=== PATIENT | female | born 1960 | race Caucasian/White ===

== ENCOUNTER 2019-08-22 10:05 | Outpatient (CLI) | payer MEDICAID, SELFPAY ==
--- NOTE | 2019-08-22 10:18 | DI.RAD_ITS ---
EXAM: XR WRIST RT COMPLETE INDICATION: pain. COMPARISON: No exams were available for comparison TECHNIQUE: 2D digital imaging was performed. FINDINGS: At the 1st carpometacarpal joint, there is marked joint space narrowing, subchondral sclerosis and pe riarticular hypertrophy. The joint spaces in the wrist are otherwise well maintained. No acute frac ture or dislocation is seen. The soft tissues are unremarkable. IMPRESSION: Advanced degenerative changes of the 1st carpometacarpal joint.
--- NOTE | 2019-08-22 10:20 | DI.RAD_ITS ---
EXAM: XR WRIST LT COMPLETE INDICATION: pain. COMPARISON: XR WRIST RT COMPLETE from 08/22/2019 TECHNIQUE: 2D digital imaging was performed. FINDINGS: At the 1st carpometacarpal joint, there is joint space narrowing and periarticular spurring. There i s subluxation laterally of the 1st metacarpal relative to the trapezium. The other articular surface s of the wrist are unremarkable. The bones are normally mineralized. There is a tiny ossified densi ty at the tip of the ulnar styloid process. This likely reflects an old fracture fragment. Soft tis sues are unremarkable. IMPRESSION: Advanced degenerative changes of the 1st carpometacarpal joint.
--- NOTE | 2019-08-22 10:23 | DI.RAD_ITS ---
EXAM: XR KNEE RT 2V AP,LAT INDICATION: pain. COMPARISON: No exams were available for comparison TECHNIQUE: 2D digital imaging was performed. FINDINGS: In the medial femoral tibial joint, there is marked joint space narrowing flattening of the articular surfaces. Periarticular spurring is present. At the patellofemoral joint, there is periarticular s purring and joint space narrowing. In the lateral femoral tibial joint, there is periarticular spurr ing present. No acute fracture or dislocation is present. There is a question of densities in the i nfrapatellar region which may represent loose bodies. Soft tissues are unremarkable. IMPRESSION: Osteoarthritis of the right knee.
== END 2019-08-22 10:25 ==
PROVIDERS: PCP Nurse Practitioner Adult Health; Visit Provider Orthopaedic Surgery
DX: M25.561 Pain in right knee (principal); M17.11 Unilateral primary osteoarthritis, right knee; M25.531 Pain in right wrist; M18.51 Other unilateral secondary osteoarthritis of first carpometacarpal joint, right hand; M25.532 Pain in left wrist; M18.52 Other unilateral secondary osteoarthritis of first carpometacarpal joint, left hand
CPT/HCPCS: 73110; 73560

== ENCOUNTER 2019-11-28 09:01 | Outpatient (CLI) | payer MEDICAID, SELFPAY | END 2019-11-28 09:21 | PROVIDERS: PCP Nurse Practitioner Adult Health; Visit Provider Orthopaedic Surgery | DX: M19.042 Primary osteoarthritis, left hand (principal); Z01.818 Encounter for other preprocedural examination ==

== ENCOUNTER 2019-12-04 07:18 | Day surgery (SDC) | payer MEDICAID, SELFPAY ==
[2019-11-28 08:53] VITALS: BP 117/81; PULSE 73; RESP 16; TEMP 36.3; O2SAT 96
[2019-12-04] VITALS (7 sets, daily range): BP systolic 104–131; BP diastolic 59–84; PULSE 59–80; RESP 12–20; TEMP 36.5–36.6; O2SAT 98–100
[2019-12-04] MEDS: Lactated Ringers 1,000 ML 80 ML IV (07:12)
[2019-12-04] MEDS: ceFAZolin 2 GM/50 ML BAG IVPB (07:56)
--- NOTE | 2019-12-04 08:59 | W.PM.DSUDISC ---
Discharge Plan Disposition Patient Disposition: HOME Condition: Good Discharge Details Reason For Visit: L Trapezial resection arthroplasty Attending Provider: Julian Ambriz Primary Care Provider: Елена Robb Home Meds and New Rx's Prescriptions: New ibuprofen 600 mg tablet 600 mg PO TID Qty: 30 RF: 0 hydrocodone-acetaminophen 5-325 mg tablet 1 tab PO Q6H PRN (Reason: pain) Qty: 10 RF: 0 Continued chlorthalidone 25 mg tablet 25 mg PO DAILY Qty: 90 RF: 3 levothyroxine 100 mcg capsule 100 mcg PO DAILY Qty: 90 RF: 3 lisinopril 20 mg tablet 20 mg PO DAILY Qty: 90 RF: 3 venlafaxine 150 mg capsule,extended release 24hr 150 mg PO DAILY Qty: 90 RF: 3 venlafaxine 75 mg capsule,extended release 24hr 75 mg PO DAILY Qty: 90 RF: 3 melatonin 5 mg capsule 5 mg PO HS PRNRF: 0 Discharge Instructions Additional Instructions: Elevate L hand above heart level as much as possible over next 48 hours. Wiggle fingers L hand 10 times/hour when awake. Keep dressings and splint dry and in place until return. Return to 's office in 2 weeks. Take ibuprofen as prescribed for 10 days. Take hydrocodone for breakthru pain, if needed. Equipment/Supplies: Splint Activity:: Activity as Tolerated Remove Dressings/Wound Care:: Do Not Remove Shower/Bathe:: Cover Diet:: As Tolerated Discharge Orders Discharge Orders: Discharge Order (Routine); Ordered 12/04/19 Ordered By: Julian Ambriz DS: Diagnosis Discharge Diagnosis (1) Arthritis of carpometacarpal (CMC) joint of left thumb: Status: Chronic
--- NOTE | 2019-12-05 11:19 | ROE_ITS ---
DATE OF PROCEDURE: December 04, 2019 PREOPERATIVE DIAGNOSIS: Osteoarthritis CMC joint, left thumb. POSTOPERATIVE DIAGNOSIS: Same. PROCEDURE: Trapezial resectional arthroplasty on the left. Application of radial short-arm thumb sp ica splint. ANESTHESIA: General. SURGEON: Julian Ambriz M.D. EDUCATION ASSISTANT: Thanh Nova INDICATIONS: This is a 59-year-old white female with longstanding left thumb pain due to osteoarthri tis of the CMC joint of the left thumb. She had progressed to the point where splinting was no longe r alleviating her discomfort. Trapezial resection arthroplasty was recommended to alleviate her pain on a permanent basis. The risks and complications of the procedure were explained to the patient in detail preoperatively. PROCEDURE: The patient was taken to the operating room on 12/04/2019. She was placed supine on the o perating table and a general anesthetic was administered. A proximal tourniquet was applied to the l eft upper arm and then the left arm was exsanguinated by elevation for two minutes. The tourniquet w as inflated to 325 mmHg. The left hand, wrist and forearm were prepped and draped free in the usual sterile fashion. A longitudinal incision was made, centered over the extensor tendons of the first dorsal extensor com partment over the CMC joint of the left thumb. The incision was about three inches in length. The i ncision was carried down to the tendons of the extensor pollicis brevis and abductor pollicis longus tendons. I made an incision in the joint capsule between the extensor tendons entering the CMC joint . The trapezium was subperiosteally freed and dissected and exposed. An oscillating saw was used to make a transverse cut through the trapezium parallel to the base of the trapezium. A millimeter or so thick wafer of trapezium was left intact. I then placed vertical cuts to the distal trapezium and using a small osteotome I was able to separate the fragments and then a rongeur was used to remove t he trapezium in a piecemeal fashion. The wound margins were infiltrated with 0.5% Marcaine with an e pinephrine solution. The capsule of the CMC joint was approximated with a pursestring suture of #3-0 Vicryl to bring soft tissue interposed between the base of the thumb metacarpal and the remaining tr apezium. The thumb metacarpal was hyperextended and then the extensor pollicis brevis and abductor p ollicis longus tendons were tenodesed to the capsule with interrupted [id number] sutures of #2-0 Vicryl suture. This corrected the preoperative subluxation of the thumb. Checking, I could passive ly touch the tip of the thumb to the base of the little finger so the repair and tenodesis was not to o tight. The wound was irrigated with saline solution. The skin and subcu were approximated with a few interrupted #2-0 Vicryl sutures and then a running subcuticular suture of #4-0 Monocryl. This wa s supplemented by tissue glue and Steri-Strips. The wound was dressed with Xeroform gauze, sterile g auze 4x4's, ABD pad and wrapped with a Kerlix bandage. I then applied a fiberglass radial thumb spic a splint with a 3-inch JESI bandage. The tourniquet was released at this point; there was no breakthr ough bleeding to the dressings. The patient's general anesthesia was reversed without complications. She was discharged to the recovery room in good condition. The patient was later discharged home from the Day Surgery Unit when fully recovered from her general anesthesia. She was given instructions to try to elevate her left hand above heart level as much as possible for the next 48 hours. She should wiggle her fingers ten times an hour while awake to prev ent swelling. She is to keep the dressings and splint dry and intact [facility] She will take ibuprofen 600 mg p.o. t.i.d. for ten days to reduce inflammation and swelling. She was given a prescription of Hydrocodone with APAP 5/325, one tablet every six hours, i f needed, for breakthrough pain.
== END 2019-12-04 11:03 | disposition home or self-care (01) ==
PROVIDERS: PCP Nurse Practitioner Adult Health; Visit Provider Orthopaedic Surgery
PROC: (CPT 25447; principal; 2019-12-04 07:30)
DX: M18.12 Unilateral primary osteoarthritis of first carpometacarpal joint, left hand (principal); I10 Essential (primary) hypertension
CPT/HCPCS: 25447; J0690; J1100; J1885; J2405; J3010

== ENCOUNTER 2020-03-15 09:04 | Outpatient (CLI) | payer MEDICAID, SELFPAY ==
[2020-03-15 23:33] LABS: COVID-19 RT-PCR UVMMC Result Negative (Negative)
== END 2020-03-15 09:24 ==
PROVIDERS: PCP Nurse Practitioner Adult Health; Visit Provider Orthopaedic Surgery
DX: Z01.818 Encounter for other preprocedural examination (principal); Z11.59 Encounter for screening for other viral diseases
CPT/HCPCS: U0003

== ENCOUNTER 2020-03-18 09:22 | Day surgery (SDC) | payer MEDICAID, SELFPAY ==
[2020-03-18 09:19] VITALS: BP 113/82; PULSE 76; RESP 20; TEMP 36.6; O2SAT 98
[2020-03-18] MEDS: Lactated Ringers 1,000 ML 80 ML IV (09:55)
[2020-03-18] MEDS: ceFAZolin 2 GM/50 ML BAG IVPB (11:37)
--- NOTE | 2020-03-18 12:29 | W.PM.DSUDISC ---
Discharge Plan Disposition Patient Disposition: HOME Condition: Good Discharge Details Reason For Visit: R Trapezial Resection arthroplasty Attending Provider: Julian Ambriz Primary Care Provider: Елена Robb Home Meds and New Rx's Prescriptions: New hydrocodone-acetaminophen 5-325 mg tablet 1 tab PO Q6H PRN (Reason: pain) Qty: 10 RF: 0 Continued chlorthalidone 25 mg tablet 25 mg PO DAILY Qty: 90 RF: 3 levothyroxine 100 mcg capsule 100 mcg PO DAILY Qty: 90 RF: 3 lisinopril 20 mg tablet 20 mg PO DAILY Qty: 90 RF: 3 venlafaxine 150 mg capsule,extended release 24hr 150 mg PO DAILY Qty: 90 RF: 3 venlafaxine 75 mg capsule,extended release 24hr 75 mg PO DAILY Qty: 90 RF: 3 melatonin 5 mg capsule 5 mg PO HS PRNRF: 0 ibuprofen 600 mg tablet 600 mg PO TID Qty: 30 RF: 0 Discharge Instructions Additional Instructions: Elevate R hand above heart level as much as possible for next 48 hours. Wiggle fingers R hand 10 times/hour when awake to prevent swelling. Keep dressings and splint dry and intact until Return. Return to 's office in 2 weeks. Take ibuprofen for mild pain every 6 hours. Take hydrocodone for breakthru pain, if needed. Cover splint with plastic bag sealed with large rubber band below elbow to shower. Stand Alone Forms: DSU Post op Instructions, Fadi Sellers (DSU) Referrals: Julian Ambriz MD [ [facility] STAFF PHYSICIAN] - (f/u in 2 weeks) Equipment/Supplies: Splint Activity:: Activity as Tolerated Remove Dressings/Wound Care:: Do Not Remove Shower/Bathe:: Cover Diet:: As Tolerated Discharge Orders Discharge Orders: Discharge Order (Routine); Ordered 03/18/20 Ordered By: Julian Ambriz DS: Diagnosis Discharge Diagnosis (1) Arthritis of carpometacarpal (CMC) joint of right thumb: Status: Acute
[2020-03-18 13:15] VITALS: PULSE 61; RESP 18; TEMP 36.6; O2SAT 96
[2020-03-18 14:01] VITALS: BP 120/74; PULSE 63; RESP 18; TEMP 36.5; O2SAT 98
--- NOTE | 2020-03-20 15:17 | W.PM.OP ---
Date of service: 03/18/20 Time of Service: 13:04 Operative Note Operative Note DATE OF PROCEDURE: 03/18/20 PRE-OP DIAGNOSIS: Osteoarthritis CMC joint right thumb POST-OP DIAGNOSIS: same PROCEDURE: Trapezial resectional arthroplasty on the right SURGEON: uJlian Ambriz CAUL FAT PULLER: Morenita Arrington ANESTHESIA: regional ESTIMATED BLOOD LOSS: 0 PATHOLOGY: none sent TOURNIQUET TIME: 45 COMPLICATIONS: None Patient was transported to: PACU Patient's condition: stable Indications: Is a 59-year-old white female with over 1 year history of bilateral thumb pain. This interferes with her household activities including knitting. 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 She had a a successful trapezial resectional arthroplasty on the left in November. She is happy with the results and wishes to have the same procedure on the right thumb now. She has got no significant relief from splinting and anti-inflammatory medications. Trapezial resection arthroplasty on the right is recommended to alleviate her pain and restore better function to her right hand. Procedure Description: Patient was taken to the operating room on 03/18/2020. She was placed supine operative table and an IV regional anesthetic was administered to the right upper extremity. Once good anesthesia was obtained, the right hand wrist and forearm were prepped and draped free in usual sterile fashion. A longitudinal incision was made centered over the dorsum of the CMC joint of the thumb. Incision was carried down to the subcu. Dorsal sensory branches of the radial nerve were mobilized. Incision was made between the abductor pollicis longus tendon and extensor pollicis brevis tendon through the capsule of the CMC joint of the thumb. Subperiosteal dissection was used to expose the trapezium. The trapezium was then excised in a piecemeal fashion. I used a small oscillating saw to cut the trapezium into pieces and a small rongeur was then used to remove the piece of the trapezium. At this point the wound margins were infiltrated 0.5% Marcaine with epinephrine solution. The capsule of the CMC joint was repaired with interrupted [id number] sutures of number one 5 suture material. The thumb metacarpal was then placed in some extension and I performed a tenodesis of the EPL and extensor pollicis brevis tendons using interrupted 2-0 Vicryl sutures through the capsule of the CMC joint. I checked the tension so that she could touch the proximal flexion crease of her little finger with her thumb tip passively. Wounds irrigated with saline solution the skin and subcu were approximated with a running subcuticular suture of 4-0 Monocryl supplemented with tissue glue. Wounds dressed with sterile gauze 4 x 4's ABD pad wrapped with a individual bandage. I then fashioned a short arm radial thumb spica splint of fiberglass cast material and applied it to the right thumb with a 3 inch Eleno bandage. Patient tolerated the procedure well and experienced no complications. Patient's IV regional anesthesia was reversed without complications she was discharged to the recovery room in good condition. Patient was later discharged home from day surgery unit when fully recovered from her IV regional anesthesia. She is given instructions to elevate her right hand above heart level as much as possible for the next 48 hours. She is encouraged to wiggle her fingers 10 times an hour while awake to prevent swelling. She is to keep the splint and dressings dry and intact until she follows up with Dr. Ambriz in 2 weeks. She is to cover the splint and dressings with a plastic bag to shower. She is given a prescription for breakthrough pain of hydrocodone with APAP 01/20/2025 1tablet every 6 hours if needed. She will take Tylenol or ibuprofen for mild pain.
== END 2020-03-18 14:05 | disposition home or self-care (01) ==
PROVIDERS: PCP Nurse Practitioner Adult Health; Visit Provider Orthopaedic Surgery
PROC: (CPT 25447; principal; 2020-03-18 11:00)
DX: M18.11 Unilateral primary osteoarthritis of first carpometacarpal joint, right hand (principal); M79.644 Pain in right finger(s)
CPT/HCPCS: 25447; J0690; J1885; J2405; J3010

== ENCOUNTER 2020-04-10 01:45 | Outpatient (CLI) | payer MEDICAID, SELFPAY ==
--- NOTE | 2020-04-10 08:00 | DI.MAMMO_ITS ---
EXAM: MG MAMMO SCREENING CLINICAL HISTORY: screening,z12.39 TECHNIQUE: Mammograms were interpreted according to the usual protocol including computer analysis w [employer] CAD system, tomosynthesis and C-view imaging. COMPARISON: 2012 through 2019 from [facility] in [facility]. FINDINGS: The breasts are composed of mainly fatty density , Breast Density category A. No suspicious masses or suspicious microcalcifications are seen. No skin thickening or abnormal axillary lymph nodes are seen. There has been no significant change from prior exams. IMPRESSION: BI-RADS Category 1, Negative mammogram Yearly screening mammography is recommended. Breast Density Category A, fatty density. A negative radiographic report should not delay biopsy if a dominant or clinically suspicious mass is present. Up to ten percent of cancers are not identified on mammography. A negative report may reinforce clinical impression. Adenosis and dense breasts may obscure an underlying neoplasm. False positive reports average 6 to 10%. Patient will receive a letter notifying them of these results.
== END 2020-04-10 02:05 ==
PROVIDERS: PCP Nurse Practitioner Adult Health; Visit Provider Nurse Practitioner Adult Health
DX: Z12.31 Encounter for screening mammogram for malignant neoplasm of breast (principal); R92.2 Inconclusive mammogram
CPT/HCPCS: 77063; 77067

== ENCOUNTER 2020-08-07 03:01 | Outpatient (CLI) | payer MEDICAID, SELFPAY ==
[2020-08-07 17:52] LABS: ALT 29 U/L (14-59); AST 21 U/L (15-37); Alkaline Phosphatase 104 U/L (46-116); Anion Gap 14.2 mmol/L (3-11); BUN 25 mg/dL (7-18); Bilirubin, Total 0.5 mg/dL (0.2-1.0); CO2 27.8 mmol/L (21.0-32.0); CREATININE 0.94 mg/dL (0.55-1.02); Calcium 9.4 mg/dL (8.5-10.1); Calculated LDL 115 mg/dL (<100); Chloride 102 mmol/L (98-107); Cholesterol 223 mg/dL (<200); Glucose 81 mg/dL (74-106); HDL Cholesterol 89 mg/dL (40-60); Potassium 3.5 mmol/L (3.5-5.1); Sodium 144 mmol/L (136-145); TSH (W/Ref FT4) 5.17 uIU/mL (0.36-3.74); Total Protein 7.6 g/dL (6.4-8.2); Triglyceride 98 mg/dL (<150); Vitamin B12 332 pg/mL (193-986)
[2020-08-07 19:19] LABS: FREE T4 0.93 ng/dL (0.76-1.46)
== END 2020-08-07 03:21 ==
PROVIDERS: PCP Nurse Practitioner Adult Health; Visit Provider Nurse Practitioner Adult Health
DX: E03.9 Hypothyroidism, unspecified (principal); I10 Essential (primary) hypertension; E53.9 Vitamin B deficiency, unspecified; D50.9 Iron deficiency anemia, unspecified; M17.0 Bilateral primary osteoarthritis of knee; M19.032 Primary osteoarthritis, left wrist; M19.031 Primary osteoarthritis, right wrist
CPT/HCPCS: 36415; 80053; 80061; 82607; 84439; 84443

== ENCOUNTER 2020-09-02 11:48 | Outpatient (CLI) | payer MEDICAID, SELFPAY ==
--- NOTE | 2020-09-02 11:18 | DI.RAD_ITS ---
EXAM: XR STANDING ALIGNMENT and XR knee RT 1 V CLINICAL HISTORY: right knee pain. TECHNIQUE: 2D digital imaging was performed. COMPARISON: CR XR KNEE RT 1V from 09/02/2020 FINDINGS: The hips are well maintained. Mild degenerative changes are seen in the left knee characterized by p eriarticular spurring particularly in the medial femoral tibial joint. There are marked degenerative changes in the right knee characterized by joint space narrowing and periarticular spurring. The fi ndings are most marked in the medial femoral tibial joint space and the patellofemoral joint. Severa l round osseous densities are seen within the joint. These may reflect loose bodies. No acute fract ure or dislocation is identified. The ankles are well maintained. The right lower extremity measure s 89.5 cm. The left lower extremity measures 91.3 cm. IMPRESSION: 1. Marked degenerative changes of the right knee as described above. 2. Mild degenerative changes of the left knee. DATA REPOSITORY: RADIATION DOSE DELIVERED:
== END 2020-09-02 12:08 ==
PROVIDERS: PCP Nurse Practitioner Adult Health; Referring Provider Nurse Practitioner Adult Health; Visit Provider Physician Assistant
DX: M17.0 Bilateral primary osteoarthritis of knee (principal)
CPT/HCPCS: 73560; 77073

== ENCOUNTER 2020-09-06 03:26 | Outpatient (CLI) | payer MEDICAID, SELFPAY ==
[2020-09-06 14:15] LABS: HCT 35.9 % (36.0-46.0); HGB 11.7 g/dL (11.2-15.7); MCHC 32.6 % (32.0-36.0); MCV 89.1 fL (80-95); MPV 11.8 fL (8.0-11.0); Platelet Count 246 10^3/uL (130-400); RBC 4.03 10^6/uL (3.93-5.22); RDW-SD 42.6 fL
[2020-09-06 15:01] LABS: Anion Gap 8.7 mmol/L (3-11); BUN 20 mg/dL (7-18); CO2 28.3 mmol/L (21.0-32.0); Calcium 9.4 mg/dL (8.5-10.1); Chloride 104 mmol/L (98-107); Glucose 142 mg/dL (74-106); Potassium 3.3 mmol/L (3.5-5.1); Sodium 141 mmol/L (136-145)
== END 2020-09-06 03:46 ==
PROVIDERS: PCP Nurse Practitioner Adult Health; Visit Provider Student in an Organized Health Care Education/Training Program
DX: M25.561 Pain in right knee (principal); M17.11 Unilateral primary osteoarthritis, right knee; Z11.59 Encounter for screening for other viral diseases; Z01.818 Encounter for other preprocedural examination; Z01.812 Encounter for preprocedural laboratory examination
CPT/HCPCS: 36415; 80048; 85027; U0003

== ENCOUNTER 2020-09-11 07:06 | Day surgery (SDC) | payer MEDICAID, SELFPAY ==
[2020-09-11] VITALS (9 sets, daily range): BP systolic 92–110; BP diastolic 51–75; PULSE 60–80; RESP 15–18; TEMP 36–36.5; O2SAT 94–100
[2020-09-11] MEDS: Lactated Ringers 1,000 ML 30 ML IV (07:45)
[2020-09-11] MEDS: Acetaminophen 500 MG TAB 1000 MG PO (07:56)
[2020-09-11] MEDS: Celecoxib 200 MG CAP 400 MG PO (07:56)
[2020-09-11] MEDS: Gabapentin 300 MG CAP PO (07:56)
--- NOTE | 2020-09-11 08:31 | PDOC.DSDIS_ITS ---
Documented by User: Pham Cuellar 09/11/20 08:45 Discharge Plan Disposition Patient Disposition: HOME Condition: Good Discharge Details Reason For Visit: Right knee DJD Attending Provider: Boom Escalera Primary Care Provider: Елена Robb Home Meds and New Rx's Prescriptions: New acetaminophen 500 mg tablet 500 mg PO Q6H PRN (Reason: pain) Qty: 60 RF: 2 aspirin 81 mg tablet,delayed release (DR/EC) 81 mg PO BID 30 Days Qty: 60 RF: 0 celecoxib [Celebrex] 200 mg capsule 200 mg PO BID Qty: 60 RF: 0 docusate sodium [Colace] 100 mg capsule 100 mg PO BID Qty: 30 RF: 0 oxycodone 5 mg tablet 5 mg PO Q4H PRN (Reason: severe post-operative pain) Qty: 18 RF: 0 pantoprazole 40 mg tablet,delayed release (DR/EC) 40 mg PO DAILY Qty: 30 RF: 0 Continued melatonin 5 mg capsule 5 mg PO HS PRNRF: 0 lisinopril 10 mg tablet 10 mg PO DAILY Qty: 90 RF: 3 melatonin 10 mg tablet 10 mg PO HS PRN (Reason: sleep) Qty: 90 RF: 3 chlorthalidone 25 mg tablet 25 mg PO DAILY Qty: 90 RF: 3 levothyroxine 100 mcg capsule 100 mcg PO DAILY Qty: 90 RF: 3 venlafaxine 150 mg capsule,extended release 24hr 150 mg PO DAILY Qty: 90 RF: 3 venlafaxine 75 mg capsule,extended release 24hr 75 mg PO DAILY Qty: 90 RF: 3 Discontinued ibuprofen 600 mg tablet 600 mg PO TID Qty: 30 RF: 0 Discharge Instructions Additional Instructions: Total Knee Discharge Instructions Activity: The most important activity is to walk. You should try to take short walks a few times a day. It is important that when resting you work on keeping the knee straight. Avoid putting a pillow behind the knee as this will enc ourage flexion. Work on range of motion exercises as provided by Physical Therapy. - Start outpatient physical therapy within 2 weeks. - You should wear the CORNELIA hose on both legs for 2 weeks. Dressing: Keep the surgical dressing in place for at least one week. After the first week it may be removed and replace with light gauze and tape or nothing. It may get wet after 3 days but avoid soaking the dressing. If it gets wet, just lightly pat dry. Medications: - You should take Tylenol and anti-inflammatory Celebrex as your primary pain control medications. If the Celebrex is too expensive or not covered, please call the office for another alternative (Advil/Ibuprofen or Naproxen/Aleve) - You have been prescribed a stronger pain medication Oxycodone for breakthrough pain, take as needed as prescribed. - You have also been prescribed a stomach acid reduction agent Pantoprozole to help reduce stomach acid and reflux. - You will be taking Aspirin 81mg twice a day for DVT prevention unless instructed otherwise. - If you have constipation you should take Colace (which has been prescribed) or Miralax (which you may purchase [id number]). It takes most people 3-4 days to have a bowel movement. Follow-up: 2 weeks If you have any acute concerns or questions, please do not hesitate to contact the office at [phone]. You may contact Dr. Escalera with any questions after hours through the hospital at [phone] or on his cell phone at [phone]. Stand Alone Forms: Anes.Nerve Block Instructions, DSU Post op Instructions, Use of Axillary Crutches Referrals: Boom Escalera MD [ [facility] STAFF PHYSICIAN] - Equipment/Supplies: Walker Activity:: Elevate Shower/Bathe:: 72 hours Diet:: As Tolerated Discharge Orders Discharge Orders: Discharge Order (Routine); Ordered 09/11/20 Ordered By: Boom Escalera DS: Diagnosis Discharge Diagnosis (1) Osteoarthritis of right knee: Status: Chronic Documented by User: Boom Escalera MD 09/11/20 14:20 Discharge Plan Disposition Patient Disposition: HOME Condition: Good Discharge Details Reason For Visit: Right knee DJD Attending Provider: Boom Escalera Primary Care Provider: Елена Robb Home Meds and New Rx's Prescriptions: New acetaminophen 500 mg tablet 500 mg PO Q6H PRN (Reason: pain) Qty: 60 RF: 2 aspirin 81 mg tablet,delayed release (DR/EC) 81 mg PO BID 30 Days Qty: 60 RF: 0 celecoxib [Celebrex] 200 mg capsule 200 mg PO BID Qty: 60 RF: 0 docusate sodium [Colace] 100 mg capsule 100 mg PO BID Qty: 30 RF: 0 oxycodone 5 mg tablet 5 mg PO Q4H PRN (Reason: severe post-operative pain) Qty: 18 RF: 0 pantoprazole 40 mg tablet,delayed release (DR/EC) 40 mg PO DAILY Qty: 30 RF: 0 Continued melatonin 5 mg capsule 5 mg PO HS PRNRF: 0 lisinopril 10 mg tablet 10 mg PO DAILY Qty: 90 RF: 3 melatonin 10 mg tablet 10 mg PO HS PRN (Reason: sleep) Qty: 90 RF: 3 chlorthalidone 25 mg tablet 25 mg PO DAILY Qty: 90 RF: 3 levothyroxine 100 mcg capsule 100 mcg PO DAILY Qty: 90 RF: 3 venlafaxine 150 mg capsule,extended release 24hr 150 mg PO DAILY Qty: 90 RF: 3 venlafaxine 75 mg capsule,extended release 24hr 75 mg PO DAILY Qty: 90 RF: 3 Discontinued ibuprofen 600 mg tablet 600 mg PO TID Qty: 30 RF: 0 Discharge Instructions Additional Instructions: Total Knee Discharge Instructions Activity: The most important activity is to walk. You should try to take short walks a few times a day. It is important that when resting you work on keeping the knee straight. Avoid putting a pillow behind the knee as this will encou rage flexion. Work on range of motion exercises as provided by Physical Therapy. - Start outpatient physical therapy within 2 weeks. - You should wear the CORNELIA hose on both legs for 2 weeks. Dressing: Keep the surgical dressing in place for at least one week. After the first week it may be removed and replace with light gauze and tape or nothing. It may get wet after 3 days but avoid soaking the dressing. If it gets wet, just lightly pat dry. Medications: - You should take Tylenol and anti-inflammatory Celebrex as your primary pain c ontrol medications. If the Celebrex is too expensive or not covered, please call the office for another alternative (Advil/Ibuprofen or Naproxen/Aleve) - You have been prescribed a stronger pain medication Oxycodone for breakthrough pain, take as needed as prescribed. - You have also been prescribed a stomach acid reduction agent Pantoprozole to help reduce stomach acid and reflux. - You will be taking Aspirin 81mg twice a day for DVT prevention unless instructed otherwise. - If you have constipation you should take Colace (which has been prescribed) or Miralax (which you may purchase [id number]). It takes most people 3-4 days to have a bowel movement. Follow-up: 2 weeks If you have any acute concerns or questions, please do not hesitate to contact the office at [phone]. You may contact Dr. Escalera with any questions after hours through the hospital at [phone] or on his cell phone at [phone]. Stand Alone Forms: Anes.Nerve Block Instructions, DSU Post op Instructions, Use of Axillary Crutches Referrals: Boom Escalera MD [ [facility] STAFF PHYSICIAN] - Equipment/Supplies: Walker Activity:: Elevate Shower/Bathe:: 72 hours Diet:: As Tolerated Discharge Orders Discharge Orders: Discharge Order (Routine); Ordered 09/11/20 Ordered By: Boom Escalera
[2020-09-11] MEDS: Bupivacaine 0.5% Pres-Free 30 ML VIAL (08:38)
[2020-09-11] MEDS: ceFAZolin 2 GM/50 ML BAG IVPB (09:18)
[2020-09-11] MEDS: Bupivacaine 0.25% Pres-Free 30 ML VIAL (09:50)
[2020-09-11] MEDS: Normal Saline 20 ML VIAL (09:51)
[2020-09-11] MEDS: Ketorolac 30 MG/ML VIAL (09:51)
--- NOTE | 2020-09-11 10:38 | ROE_ITS ---
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 Depuy Attune Cementless Cruciate Retaining Femoral Component, Size 5 Narrow 2. Depuy Attune Cementless Rotating Platform Tibial Component, Size 4 3. Depuy Attune 5x6mm CR/RP Poly 4. Depuy Attune Patellar Component, Size 35mm Indications: I have seen Sarah in clinic for symptoms of knee arthritis, confirmed with radiographic findings. Sarah has exhausted nonoperative methods and was having significant limitations in daily function and desired better function and less pain. I discussed the technical details of a knee replacement. I explained the risks of the procedure to include, but not limited to, bleeding, infection, pain, stiffness, fracture, damage to nerves and vessels, damage to muscles and tendons, loosening, need for repeat procedure, blood clot and cardiopulmonary demise. Despite these risks, she elected to proceed. Findings: There was significant signs of arthritis throughout the knee. The medial compartment was the most affected by all 3 spaces had osteophytes and chondromalacia. There were numerous loose bodies (10-15) throughout the knee ranging in size from 5-15mm. This likely represented some type of synovial chondromatosis. Procedure Description: Sarah was greeted in the preoperative holding area where the correct side was identified and marked. The consent was reviewed with the patient and signed. The history and physical was updated. All questions were answered. Preoperative medications were administered: Acetaminophen 1000mg, Celebrex 400mg, and Gabapentin 300mg. An adductor canal block was then administered by the anesthesia team in the PACU. Sarah was taken back to the operating room. A spinal anesthestic was then administered. The patient was placed into the supine position on the operating room table. A nonsterile tourniquet was placed high onto the leg but only used for cementing. Posts were placed for positioning during the procedure. All bony prominences were well padded. Prophylactic antibiotics in the form of Cefazolin were administered. 1g of Tranxemic Acid was given intravenously w ithin 30 minutes of incision. The right leg was then prepped with Chloraprep and draped in a standard fashion with impervious stockinette. A second prep with Chloraprep was performed prior to application of Iodine impregnated skin protection. A timeout to confirm correct identity, side and site, procedure, allergies, anesthesia, and medical concerns was performed. With the knee in some flexion, a midline incision was made overlying the knee. Full thickness skin flaps were raised once the extensor mechanism was encountered. These were raised medially and laterally. Any bleeding was contr olled with electrocautery. Once the extensor mechanism was fully exposed, a medial parapatellar arthrotomy was performed in a flexed position. All bleeding from the arthrotomy and the geniculate arteries was coagulated. A medial subperiosteal peel was performed with electrocautery to the midcoronal plane. Due to the significant varus deformity the entire medial tibial plateau was exposed. The fat pad was removed while keeping the patellar tendon protected. The anterior distal femur synovium was removed for later visualization. The ACL and PCL were resected and the anterior horn of the lateral meniscus was transected. The knee was then flexed with the patella everted. Large osteophytes from the tibia were removed. Large osteophytes from the femur were removed. There were numerous loose bodies encounter within the gutters and then in the back of the knee. They ranged from 5-15mm and were smooth, and appeared to be cartilagenous. Using a step drill, and based on preoperative templating, the femoral canal was entered. This was done with a step drill without any difficulty. The intramedullary distal femoral cut guide was inserted, set to a 5 degree valgus cut and 9mm cut thickness. The distal femoral cut guide was then held in position and pinned. With the soft tissues protected, the distal cut was performed. This was passed over a few times to ensure a planar cut. I then turned attention to the tibia. The extramedullary guide was placed onto the leg. The distal aspect was slid medial to adjust for position of center of ankle and stay in line with shaft of the tibia. Approximately 3-5 degrees of posterior slope was kept in the proximal cutting guide. The center of the guide was aligned with the PCL. The stylus was used to assess cut thickness. The medial side, most involved side, was set for a 4mm cut. This was then held in position and pinned into place with 2 additional pins and a cross pin for stability. The medial and lateral collateral ligaments were protected and the cut was performed. With this completed, it was assessed and noted to be of appropriate dimensions. The guide was removed. A spacer block was inserted and the knee was brought into extension. The 6mm spacer block provided full extension, without hyperextension and with stability of both the medial and lateral collateral ligaments was assessed. The pins from the femur and the tibia were then removed. The distal femur was then sized. The anterior stylus was placed onto the lateral ridge of the anterior femur. This indicated a size 5 narrow femur. The external rotation of the guide was adjusted to 3 degrees to match the epicondylar axis, perpendicular to [place]?s line. The 4-in-1 cutting guide was the placed. The posterior medial femur cut was evaluated and appeared of good thickness. The spacer block was inserted underneath the cutting guide and stability was confirmed in 90 degrees of flexion. An colby wing was used to confirm appropriate position of the anterior cut to avoid notching. This cutting guide was ensured to be flush on the cut surface and then pinned into place with headed pins. While protecting the soft tissues, quad tendon, and collateral ligaments, the anterior and posterior cuts were performed with a saw. The central two pins were removed and the posterior and anterior chamfers were cut next. The notch-cutting guide was placed. This was pinned to lateralize the femoral component as much as possible while keeping it flush on the cut surface. This was then pinned into position. A reciprocating saw was used to make the notch cut. A rasp smoothed the cut surfaces. The medial and lateral menisci were removed. A trial femoral component was then inserted, impacted down to the cut surfaces, and the lug holes were drilled. A provisional trial tibial component was placed and the knee was brought through range of motion. There was noted to be excellent extension and flexion. There was no significant instability. The patella was tracking without thumbs. A size 6mm polyethylene component provided the best range of motion and stability with less than 2mm gapping with medial and lateral stress and full extension without significant hyperextension. The tibial cut surface was fully exposed. The tibia was then sized as a 4. The tibia had been previously marked during trialing to correspond to the center of the tibial component to help with rotation. The trial was aligned to this jefferson, approximately rotated to the medial 1/3rd of the tibial tubercle. The trial was pinned into place. The tibia was prepared with a reamer and a keel punch and lug holes. The knee was then brought into extension and the patella was measured as 23mm. Using the patellar clamp and cut guide, this was resected to a flat surface with at least 13mm of thickness remaining. The size 35mm patella fit the best. This was oriented and then clamped into position. The lugs were drilled. The trial components were removed. The final components were opened on the back table. The periosteal and capsular tissues, especially posteriorly, around the knee were then systematically injected with a periarticular cocktail consisting of 50cc 0.25% Marcaine, 30mg Ketorolac, 20cc of Exparal and 50cc of injectable saline. The knee was thoroughly irrigated with a pulse lavage and dried. Irrisept was also used to irrigate the tissues. On the back table, with the implants opened, the cement was mixed. One batch of high viscosity cement were prepared with vacuum assistance. After the cement was ready a small amount was placed on the cut surface of the patella and the patellar button was clamped into position and held. During this process attention was turned to the gutters of the knee and for all interfaces for any excess cement. While the cement was hardening, the cementless knee components were placed. Starting with the tibial component, the tibia was subluxed anteriorly and the lug holes of the component were lined up. The tibia was then impacted with an impactor and mallet until the tibial component was in contact with the tibia. The final polyethylene component was inserted. Then, the femoral component was inserted. The lug holes were aligned and the component was impacted into position. The knee was irrigated with Irrisept chlorhexadine solution. This was allowed to sit in the knee for 3 minutes. After the cement had finally cured, approximately 15min, the clamp was removed from the patella and the knee was taken through range of motion. The patella was tracking with a no-thumbs technique. The capsule was then reapproximated with a No. 1 Vicryl at multiple locations. The capsule was finally closed with a No. 2 Stratafix, barbed suture. The second dosing of 1g TXA was started. Deep tissues were then reapproximated with 0 Vicryl and 2-0 Vicryl. The skin was closed with a running 3-0 Monocryl in a subcuticular fashion. This was reinforced with skin glue. A Mepilex silver dressing was applied along with a [id number] JESI wrap. A CryoCuff was applied. Sarah was transferred to the hospital bed without difficulty an suffering no apparent complication. Sarah has a good prognosis. Physical therapy will start today and without restrictions, weight-bearing as tolerated. Aspirin 81mg BID will be used for DVT prophylaxis.
--- NOTE | 2020-09-11 13:45 | PT.INIE ---
Date of service: 09/11/20 Time of Service: 13:45 PT Notes Visit Reasons: Right knee DJD Physical Therapy Inpatient Initial Evaluation Date: 09/11/2020 Referring Doctor: DYLAN Ledesma PT Orders: PT CONSULT: Status post Ortho surgery Precautions: Fall. Standard. WBAT on right LE. Patient Profile/Admitting Diagnosis: Daija is a 59-year-old female with primary unilateral osteoarthritis of the right knee and is status post right total knee arthroplasty on postoperative day 0. PMHX: Medical History Anxiety (Chronic) Long-term Effexor Arthritis of carpometacarpal (CMC) joint of right thumb (Acute) Depression (Chronic) Long-term Effexor Hypertension (Chronic) Hypothyroid (Chronic) Insomnia (Chronic) Difficulty falling asleep; Caffeine (avoid after noon) + MelatoninPRN Iron deficiency anemia (Chronic) Eats whole foods diet Colonoscopy normal 2018 (reported) Primary osteoarthritis (Chronic) Knees, wrists, wears splints Vitamin B deficiency (Inactive) Surgical History Arthritis of carpometacarpal (CMC) joint of left thumb (Chronic) S/P trapezial arthroplasty: 12/04/2019 H/O tubal ligation (Chronic) 1996 [facility] History of bladder suspension procedure (Acute) History of tonsillectomy (Chronic) Social History/Home Situation: Lives with friend/boss in a private home with no steps to enter. She did indicate that she would prefer to go up the flight of steps to her bedroom than sleep main floor. She has a rail on 1 side and a wall that she can hold onto through those steps. She will have adequate support at home while she recovers. Equipment Owned/DME: None Subjective: Agreeable to PT consult. Denies headache, chest pain, and lightheadedness throughout session. Did report some minimal instability initially in the right knee that resolved with ambulation activity. Objective: General Observation: Supine in bed. JESI wraps in R LE. IV access in left UE. Mental Status: Alert and oriented x4 Pain: None reported. Vital Signs: Within normal limits as closely monitored by nurse Luevano before, during, and after PT session ROM: Right Upper Extremity: Shoulder Flexion WFL. Shoulder abduction WFL. Elbow flexion WFL. Wrist flexion WFL. Opening and closing of hand WFL. Left Upper Extremity: Shoulder Flexion WFL. Shoulder abduction WFL. Elbow flexion WFL. Wrist flexion WFL. Opening and closing of hand WFL. Right Lower Extremity: Hip flexion WFL. Hip abduction WFL. Knee flexion 10 degrees to 100 degrees. Knee extension -10 degrees. Left Lower Extremity: Hip flexion WFL. Hip abduction WFL. Knee flexion WFL. Ankle dorsiflexion WFL. Ankle plantarflexion WFL. Strength: Right Upper Extremity: Shoulder flexors 5/5. Shoulder abductors 5/5. Elbow flexors 5/5. Elbow extensors 5/5. Outside Sales Engineer strong. Left Upper Extremity: Shoulder flexors 5/5. Shoulder abductors 5/5. Elbow flexors 5/5. Elbow extensors 5/5. Outside Sales Engineer strong. Right Lower Extremity: Hip flexors 5/5. Hip abductors 5/5. Knee flexors 5/5. Knee extensors 5/5. Ankle dorsiflexors 5/5. Ankle plantarflexors 5/5. Left Lower Extremity:Hip flexors 4/5. Hip abductors 4/5. Knee flexors 3-/5. Knee extensors 3-/5. Ankle dorsiflexors 5/5. Ankle plantarflexors 5/5. Sensation: Intact as to pain and pressure on bilateral lower extremities. Bed Mobility/Transfers: Supine to sit standby assist Sit to stand contact-guard assist Stand to sit contact-guard assist Bed to chair contact-guard assist Chair to bed contact-guard assist Gait: Guided patient through level surface ambulation of 100 feet x 2 using front wheeled walker with contact-guard assist demonstrating step to gait pattern with decreased step height and length on the left LE as well as decreased knee flexion. Minimal verbal cues given for posture and walker mechanics. THERA EX: Instruction given for correct performance of seated level exercises consisting of L AQs x15, seated hip flexion x 15, and seated hip abduction x 15 with no increase in pain. Balance: Static Sitting: Normal Dynamic Sitting: Normal Static Standing: Fair Dynamic Standing: Fair Special Tests: Mobility Limitations Standardized [facility] 6 clicks Basic Mobility Inpatient Short Form: Raw Score: 21 CMS Score: 29% deficit Informed Consent/Education: Patient instructed in purpose of PT consult and plan of care. Assessment: Daija demonstrates the need for a front wheeled walker to maximize independence and reduce fall risk for all mobility ADL performance at home. She has a good mastery of seated level exercises that she can do at home. She understands the importance of maximizing walking activity as tolerated using her walker. She will benefit from outpatient physical therapy services in order to facilitate return to independent ambulation without an assistive device. Patient presents with clinical signs and symptoms consistent with current/admitting diagnoses that have resulted to mobility limitations, gait instability, generalized weakness, and impairment of motor control as demonstrated by the following impairment level findings: 1. Decreased strength to right knee major muscle groups 2. Impaired standing balance 3. Impaired activity tolerance 4. Limitation of joint range of motion in right knee Impairments are contributing to the following functional limitations: 1. Inability to safely ambulate without assistive device 2. Increase completion time for mobility ADL performance 3. Increased fall risk 4. Inability to negotiate steps alone safely Patient is assessed as a [id number] moderate complexity based on the following: History: 59-year-old female with impairment level findings, functional limitations, and past medical history as indicated above Examination: Demonstrable impairment in strength, balance, and mobility level with underlying impairments and functional limitations as documented above Presentation:Evolving Decision Makin moderate complexity Goals: N/A. PT evaluation 1 treatment session only for functional mobility training using the front wheeled walker and for HEP instruction. Plan of Care/Treatment Plan: N/A. PT evaluation 1 treatment session only for functional mobility training using the front wheeled walker and for HEP instruction. DISCHARGE RECOMMENDATIONS: Home when medically cleared by orthopedic surgeon. Outpatient physical therapy services to facilitate return to independent ambulation level without assistive device. TREATMENT CODE/TIME: 35842 x 30 minutes, 39528 x29 minutes beginning at 13:45 PM. Thank you for the opportunity to participate in the care of this patient. Karen Weaver PT, DPT, CLT [facility] [place], [place]
== END 2020-09-11 15:24 | disposition home or self-care (01) ==
PROVIDERS: PCP Nurse Practitioner Adult Health; Visit Provider Student in an Organized Health Care Education/Training Program
PROC: (CPT 27447; principal; 2020-09-11 09:15)
DX: M17.11 Unilateral primary osteoarthritis, right knee (principal); M25.561 Pain in right knee; Z96.651 Presence of right artificial knee joint; G89.18 Other acute postprocedural pain; M67.861 Other specified disorders of synovium, right knee; I10 Essential (primary) hypertension
CPT/HCPCS: 27447; C1776; 76942; 97162; 97530; J0690; J1100; J1885; J2250; J2370; J2405

== ENCOUNTER 2020-09-26 13:11 | Outpatient (CLI) | payer MEDICAID, SELFPAY ==
--- NOTE | 2020-09-26 11:00 | DI.RAD_ITS ---
EXAM: XR KNEE RT 1V CLINICAL HISTORY: 1ST POST OP R TKA. TECHNIQUE: 2D digital imaging was performed. COMPARISON: CR XR KNEE RT 1V from 09/02/2020 FINDINGS: Single lateral view reveals interval placement of a knee prosthesis. Components are in satisfactory position as seen on this lateral view. No fracture. No loosening. There has been patellar resurfac ing. IMPRESSION: DATA REPOSITORY: RADIATION DOSE DELIVERED:
--- NOTE | 2020-09-26 11:00 | DI.RAD_ITS ---
EXAM: XR STANDING ALIGNMENT CLINICAL HISTORY: 1ST POST OP R TKA. TECHNIQUE: 2D digital imaging was performed. COMPARISON: CR XR STANDING ALIGNMENT from 09/02/2020 FINDINGS: There has been interval placement of a right knee prosthesis which appears satisfactory. Hips appear unremarkable with the exception of a 5 x 4 millimeter peripherally calcified density just above the left hip greater trochanter. Moderate degenerative changes seen in the medial compartment of the left knee. Ankles appear unremarkable. Talar domes unremarkable. IMPRESSION: Right knee prosthesis. Moderate degenerative changes left knee. Other findings as above. DATA REPOSITORY: RADIATION DOSE DELIVERED:
== END 2020-09-26 13:31 ==
PROVIDERS: PCP Nurse Practitioner Adult Health; Referring Provider Nurse Practitioner Adult Health; Visit Provider Physician Assistant Surgical
DX: Z96.651 Presence of right artificial knee joint (principal)
CPT/HCPCS: 73560; 77073

== ENCOUNTER 2020-10-21 03:57 | Outpatient (CLI) | payer MEDICAID, SELFPAY ==
[2020-10-22 15:08] LABS: COVID-19 RT-PCR UVMMC Result Negative (Negative)
== END 2020-10-21 04:17 ==
PROVIDERS: PCP Nurse Practitioner Adult Health; Visit Provider Nurse Practitioner Adult Health
DX: Z11.52 Encounter for screening for COVID-19 (principal)
CPT/HCPCS: U0003

== ENCOUNTER 2021-05-12 00:54 | Outpatient (CLI) | payer MEDICAID, SELFPAY ==
--- NOTE | 2021-05-12 08:15 | DI.MAMMO_ITS ---
Exam(s) MAMMO SCREENING EXAM: MAMMO SCREENING CLINICAL HISTORY: screening, Z12.39. TECHNIQUE: Bilateral full field digital CC and MLO mammographic images were obtained with 3D tomosyn thesis and utilizing computer aided detection (CAD). COMPARISON: Prior mammograms dating back to 2012, the most recent being March 2020. FINDINGS: There are no new spiculated masses nor malignant appearing microcalcification groups. Small peripherally calcified benign oil cysts are again noted in both breasts. There is no significant architectural distortion nor skin thickening-retraction. IMPRESSION: No radiographic evidence of malignancy. BI-RADS Category 1 - Negative Breast Density - Category A - Almost entirely fatty Breast density Category C or D implies that the patient has dense breast tissue. Dense breast tissue can make it harder to find cancer on a mammogram. Dense breast tissue is also associated with an incr eased risk of breast cancer. This information about the result of the mammogram report was provided to the patient to raise their awareness. Use this report when you speak with the patient about their risks for breast cancer, which includes their family history. At that time, you may recommend additional screening tests (Ultrasoun d or MRI) as these tests may add significant information. A negative radiographic report should not delay biopsy if a dominant or clinically suspicious mass is present. Up to ten percent of cancers are not identified on mammography. A negative report may reinforce clinical impression. Adenosis and dense breasts may obscure an underlying neoplasm. False positive reports average 6 to 10%. Patient will receive a letter notifying them of these results.
== END 2021-05-12 01:14 ==
PROVIDERS: PCP Nurse Practitioner Adult Health; Visit Provider Nurse Practitioner Adult Health
DX: Z12.31 Encounter for screening mammogram for malignant neoplasm of breast (principal)
CPT/HCPCS: 77063; 77067

== ENCOUNTER 2021-06-23 03:08 | Outpatient (CLI) | payer MEDICAID, SELFPAY ==
[2021-06-23 11:00] LABS: Source Nasal/Nares
[2021-06-23 15:41] LABS: COVID-19 PCR Negative (Negative)
== END 2021-06-23 03:09 | disposition home or self-care (01) ==
LOC: LBO 03:08
PROVIDERS: PCP Nurse Practitioner Adult Health; Visit Provider Student in an Organized Health Care Education/Training Program
DX: Z20.822 Contact with and (suspected) exposure to COVID-19 (principal); Z01.818 Encounter for other preprocedural examination
CPT/HCPCS: 87635

== ENCOUNTER 2021-06-24 09:29 | Day surgery (SDC) | payer MEDICAID, SELFPAY ==
[2021-06-24 09:44] VITALS: BP 122/81; PULSE 88; RESP 16; TEMP 36.3; O2SAT 97
--- NOTE | 2021-06-24 09:51 | W.PM.DSUDISC ---
Discharge Plan Disposition Patient Disposition: HOME Condition: Good Discharge Details Reason For Visit: Right thumb trigger finger Attending Provider: Boom Escalera Primary Care Provider: Елена Robb Home Meds and New Rx's Prescriptions: New acetaminophen 500 mg tablet 500 mg PO Q6H PRN (Reason: pain) Qty: 60 RF: 2 ibuprofen 600 mg tablet 600 mg PO TID PRN (Reason: pain) Qty: 60 RF: 0 Continued melatonin 5 mg capsule 5 mg PO HS PRNRF: 0 lisinopril 10 mg tablet 10 mg PO DAILY Qty: 90 RF: 3 melatonin 10 mg tablet 10 mg PO HS PRN (Reason: sleep) Qty: 90 RF: 3 chlorthalidone 25 mg tablet 25 mg PO DAILY Qty: 90 RF: 3 levothyroxine 100 mcg capsule 100 mcg PO DAILY Qty: 90 RF: 3 venlafaxine 150 mg capsule,extended release 24hr 150 mg PO DAILY Qty: 90 RF: 3 venlafaxine 75 mg capsule,extended release 24hr 75 mg PO DAILY Qty: 90 RF: 3 Discontinued acetaminophen 500 mg tablet 500 mg PO Q6H PRN (Reason: pain) Qty: 60 RF: 2 Discharge Instructions Stand Alone Forms: Jw Saucedo Finger Release Referrals: Boom Escalera MD [ [facility] STAFF PHYSICIAN] - Activity:: Elevate Remove Dressings/Wound Care:: 72 hours Shower/Bathe:: 72 hours Diet:: As Tolerated Discharge Orders Discharge Orders: Discharge Order (Routine); Ordered 06/24/21 Ordered By: Pham Cuellar DS: Diagnosis Discharge Diagnosis (1) Trigger finger of right thumb: Status: Acute
[2021-06-24] MEDS: Sodium Bicarbonate 50 MEQ/50 ML VIAL (10:15)
[2021-06-24 10:33] VITALS: BP 92/59; PULSE 62; RESP 16; TEMP 36.3; O2SAT 100
--- NOTE | 2021-06-24 22:34 | W.PM.OP ---
Date of service: 06/24/21 Time of Service: 14:34 Operative Note Operative Note DATE OF PROCEDURE: 06/24/21 PRE-OP DIAGNOSIS: Right Trigger Thumb POST-OP DIAGNOSIS: same PROCEDURE: Trigger Finger Release - Right Thumb SURGEON: Boom Escalera ANESTHESIA TYPE: Local By Surgeon Refer to Anesthesia Record ESTIMATED BLOOD LOSS: 0 PATHOLOGY: none sent TOURNIQUET TIME: 0 COMPLICATIONS: None Patient was transported to: same day Patient's condition: stable Indications: I have seen Sarah in clinic for symptoms of a trigger finger. The catching, clicking, locking, and pain limited function. The diagnosis of trigger finger was evident. The symptoms had not responded to conservative measures. I discussed trigger finger release with the patient. I reviewed the risks of the procedure to include, but not limited to, bleeding, infection, pain, stiffness, incomplete release, damage to nerves or vessels, continued catching, recurrence. Despite these risks, the patient elected to proceed. Findings: There was a tightened A1 herbert which was released. The flexor tendons were inspected and the patient was able to move the finger without any catching, clicking, or locking. Procedure Description: Sarah was greeted in the preoperative holding area where the correct side was identified and marked. The consent was reviewed with the patient and signed. All questions were answered. She was taken back to the operating room. The patient was placed into the supine position on the operating room table with the right arm on an arm board. All bony prominences were well padded. No prophylactic antibiotics were administered since this was a clean, elective hand surgical case. The right arm was then prepped with Chloraprep and draped in a standard fashion with stockinette and extremity drape. A timeout to confirm correct identity, side and site, procedure, allergies, anesthesia, and medical concerns was performed. The surgical site was marked as a longitudinal incision directly over the A1 herbert of the involved digit. This was confirmed with palpation during finger flexion. This area, overlying the metacarpal head, was then anesthetized with 1% Lidocaine. The patient tolerated this well and once the anesthetic had setup, the procedure began. A longitudinal incision was made through skin only, approximately 1cm. The deep tissues were dissected bluntly. Once the A1 herbert and flexor tendons were identified the soft tissue including neurovascular structures were retracted medially and laterally. There were no crossing structures over the A1 herbert. The proximal edge of the herbert was identified and the herbert was incised with tenotomy scissors. There was a release of the tendons once this was fully released. The tendons were then removed from the wound and inspected. Excess synovium was resected. The tendons were then returned and the patient was asked to move the finger into deep flexion and back to extension. There was no recreation of the pre-operative symptoms. The hand was then once more inspected for any A0 herbert or area of possible constriction. The wound was then irrigated and the skin was closed with a 4-0 Nylon. This was dressed with gauze and a Conform dressing. The patient tolerated the procedure well and was returned to the Same Day Surgery area in a stable condition suffering no known complication.
== END 2021-06-24 11:00 | disposition home or self-care (01) ==
PROVIDERS: PCP Nurse Practitioner Adult Health; Visit Provider Student in an Organized Health Care Education/Training Program
PROC: (CPT 26055; principal; 2021-06-24 12:15)
DX: M65.311 Trigger thumb, right thumb (principal)
CPT/HCPCS: 26055

== ENCOUNTER 2021-07-29 04:16 | Outpatient (CLI) | payer MEDICAID, SELFPAY ==
[2021-07-29 08:56] LABS: HCT 35.1 % (36.0-46.0); HGB 11.5 g/dL (11.2-15.7); MCHC 32.8 % (32.0-36.0); MCV 88.4 fL (80-95); MPV 11.8 fL (8.0-11.0); Platelet Count 278 10^3/uL (130-400); RBC 3.97 10^6/uL (3.93-5.22); RDW 13.2 % (11.7-14.6); RDW-SD 43.2 fL; WBC 8.22 10^3/uL (4.4-10.8)
[2021-07-29 13:25] LABS: Iron 43 ug/dL (50-170); Total Iron Binding Capacity 354 ug/dL (250-450); Transferrin Sat 12 % (15-50)
[2021-07-29 13:47] LABS: Calcium 8.9 mg/dL (8.5-10.1)
[2021-07-29 13:48] LABS: Albumin 4.2 g/dL (3.4-5.0); Alkaline Phosphatase 122 U/L (46-116); BUN 34 mg/dL (7-18); Bilirubin, Total 0.4 mg/dL (0.2-1.0); CREATININE 0.9 mg/dL (0.55-1.02); Calculated LDL 135 mg/dL (<100); Chloride 104 mmol/L (98-107); Cholesterol 227 mg/dL (<200); Glucose 92 mg/dL (74-106); HDL Cholesterol 82 mg/dL (40-60); Potassium 3.2 mmol/L (3.5-5.1); Sodium 143 mmol/L (136-145); Total Protein 7.6 g/dL (6.4-8.2); Triglyceride 54 mg/dL (<150)
[2021-07-29 13:49] LABS: ALT 29 U/L (14-59); AST 20 U/L (15-37); Anion Gap 11.5 mmol/L (3-11); CO2 27.5 mmol/L (21.0-32.0); TSH (W/Ref FT4) 10.27 uIU/mL (0.36-3.74)
[2021-07-29 14:20] LABS: FREE T4 0.91 ng/dL (0.76-1.46)
[2021-07-30 15:16] LABS: HIV-1/2 Ag & Ab Screen Negative (Negative)
[2021-07-30 16:20] LABS: Hepatitis C Ab w Rflx HCV PCR Negative (Negative)
== END 2021-07-29 04:17 | disposition home or self-care (01) ==
LOC: LBO 04:16
PROVIDERS: PCP Nurse Practitioner Adult Health; Visit Provider Nurse Practitioner Adult Health
DX: D50.9 Iron deficiency anemia, unspecified (principal); I10 Essential (primary) hypertension; E78.5 Hyperlipidemia, unspecified; E03.9 Hypothyroidism, unspecified; F41.9 Anxiety disorder, unspecified; Z11.4 Encounter for screening for human immunodeficiency virus [HIV]; Z11.59 Encounter for screening for other viral diseases
CPT/HCPCS: 36415; 80053; 80061; 85027; 86803; 87389; 83540; 83550; 84439; 84443

== ENCOUNTER 2021-09-19 13:39 | Outpatient (REF) | payer MEDICAID, SELFPAY ==
[2021-09-22 09:57] LABS: COVID-19 RT-PCR UVMMC Result Negative (Negative)
== END 2021-09-19 13:40 | disposition home or self-care (01) ==
LOC: LBN 13:39
PROVIDERS: PCP Nurse Practitioner Adult Health; Visit Provider Physician Assistant Medical
DX: Z20.822 Contact with and (suspected) exposure to COVID-19 (principal); J06.9 Acute upper respiratory infection, unspecified
CPT/HCPCS: U0003

== ENCOUNTER 2021-10-09 11:52 | Outpatient (CLI) | payer MEDICAID, SELFPAY ==
--- NOTE | 2021-10-09 11:30 | DI.RAD_ITS ---
Exam(s) XR KNEE RT 2V AP,LAT EXAM: XR KNEE RT 2V AP,LAT CLINICAL HISTORY: ANNUAL F/U R TKA. TECHNIQUE: 2D digital imaging was performed. COMPARISON: CR XR KNEE RT 2V AP,LAT from 08/22/2019 CR XR KNEE RT 1V from 09/26/2020 FINDINGS: Stable position alignment of the components of the prosthesis. No fracture or loosening evident. Ho wever, on the lateral view there are 2 small calcific densities noted posteriorly which are probably loose intra-articular bodies, not evident on the prior study. IMPRESSION: DATA REPOSITORY: RADIATION DOSE DELIVERED:
== END 2021-10-09 11:53 | disposition home or self-care (01) ==
LOC: DIORS 11:53
PROVIDERS: PCP Nurse Practitioner Adult Health; Referring Provider Nurse Practitioner Adult Health; Visit Provider Student in an Organized Health Care Education/Training Program
DX: Z96.651 Presence of right artificial knee joint (principal)
CPT/HCPCS: 73560

== ENCOUNTER 2021-10-22 03:33 | Outpatient (CLI) | payer MEDICAID, SELFPAY ==
[2021-10-22 13:51] LABS: HCT 36.2 % (36.0-46.0); HGB 11.9 g/dL (11.2-15.7); MCH 29.3 pg (27.0-33.0); MCHC 32.9 % (32.0-36.0); MCV 89.2 fL (80-95); MPV 11.6 fL (8.0-11.0); Platelet Count 205 10^3/uL (130-400); RBC 4.06 10^6/uL (3.93-5.22); RDW 12.7 % (11.7-14.6); RDW-SD 41.5 fL; WBC 7.14 10^3/uL (4.4-10.8)
[2021-10-22 15:19] LABS: Anion Gap 12.6 mmol/L (3-11); BUN 27 mg/dL (7-18); CO2 25.4 mmol/L (21.0-32.0); CREATININE 0.8 mg/dL (0.55-1.02); Calcium 9.2 mg/dL (8.5-10.1); Chloride 102 mmol/L (98-107); Glucose 93 mg/dL (74-106); Potassium 3.4 mmol/L (3.5-5.1); Sodium 140 mmol/L (136-145); TSH (W/Ref FT4) 2.74 uIU/mL (0.36-3.74)
[2021-10-22 15:23] LABS: Iron 113 ug/dL (50-170); Total Iron Binding Capacity 338 ug/dL (250-450); Transferrin Sat 33 % (15-50)
== END 2021-10-22 03:34 | disposition home or self-care (01) ==
LOC: LBO 03:33
PROVIDERS: PCP Nurse Practitioner Adult Health; Visit Provider Nurse Practitioner Adult Health
DX: E61.1 Iron deficiency (principal); E87.6 Hypokalemia; I10 Essential (primary) hypertension; R79.9 Abnormal finding of blood chemistry, unspecified; E03.9 Hypothyroidism, unspecified; R79.89 Other specified abnormal findings of blood chemistry
CPT/HCPCS: 36415; 80048; 85027; 83540; 83550; 84443

== ENCOUNTER 2022-05-08 16:56 | Outpatient (REF) | payer MEDICAID, SELFPAY ==
--- NOTE | 2022-05-08 16:30 | PAPFT_PTH ---
PATIENT: Daija Alex LOC: [facility] U#:[id number] AGE/SX: 61/F ROOM: RE05/08/[address]: Елена Robb APRN : 1960 BED: DIS: 05/08/2022 SPEC #: [id number] RECD: 05/08/22 18:13 STATUS: MARY REQ #: [id number] HARSHAL: 05/08/22 16:[address]: Елена Robb DEPT: [facility] Cytology RECD BY: Jessica Lemus Tissues: 1 - CX/ENDOCX FOR PAP SMEARS Procedures: PAP THIN PREP/UVM Screening HPV DNA PROBE Comments: [id number]
== END 2022-05-08 16:57 | disposition home or self-care (01) ==
LOC: LBN 16:56
PROVIDERS: PCP Nurse Practitioner Adult Health; Visit Provider Nurse Practitioner Adult Health
DX: Z12.4 Encounter for screening for malignant neoplasm of cervix (principal); Z11.51 Encounter for screening for human papillomavirus (HPV)
CPT/HCPCS: 88142; 87624

== ENCOUNTER → 2022-05-22 00:54 | Outpatient (CLI) | payer MEDICAID, SELFPAY ==
--- NOTE | 2022-05-22 13:06 | DI.MAMMO_ITS ---
Exam(s) MAMMO SCREENING EXAM: MAMMO SCREENING CLINICAL HISTORY: screening, Z12.39 TECHNIQUE: Mammograms were interpreted according to the usual protocol including computer analysis w [employer] CAD system, tomosynthesis and C-view imaging. COMPARISON: FINDINGS: The breasts are of moderate density with fairly symmetrical distribution of fibroglandular tissue. N o dominant mass or clumped microcalcification is identified in either breast. The current examinatio n is compared with previous examinations including April 2021 and there has been no gross interval c hange in appearance in comparison with the prior studies. IMPRESSION: No specific evidence of malignancy at this time. Routine screening examinations are suggested at yea rly intervals in this age group according to the ACS ACR guidelines. BI-RADS Category 1 - Negative Breast Density - Category B - Scattered areas of fibroglandular density
== END ==
PROVIDERS: PCP Nurse Practitioner Adult Health; Visit Provider Nurse Practitioner Adult Health
DX: Z12.31 Encounter for screening mammogram for malignant neoplasm of breast (principal)
CPT/HCPCS: 77063; 77067

== ENCOUNTER 2022-11-20 02:06 | Outpatient (CLI) | payer MEDICAID, SELFPAY ==
[2022-11-20 10:46] LABS: HCT 37.5 % (36.0-46.0); HGB 12.3 g/dL (11.2-15.7); MCH 29.6 pg (27.0-33.0); MCHC 32.8 % (32.0-36.0); MCV 90 fL (80-95); MPV 11.4 fL (8.0-11.0); Platelet Count 232 10^3/uL (130-400); RBC 4.16 10^6/uL (3.93-5.22); RDW 12.7 % (11.7-14.6); WBC 6.68 10^3/uL (4.4-10.8)
[2022-11-20 11:41] LABS: Anion Gap 7.1 mmol/L (3-11); BUN 13 mg/dL (7-18); CO2 28.9 mmol/L (21.0-32.0); CREATININE 0.8 mg/dL (0.55-1.02); Calcium 9.6 mg/dL (8.5-10.1); Calculated LDL 118 mg/dL (<100); Chloride 108 mmol/L (98-107); Cholesterol 210 mg/dL (<200); Ferritin 100 ng/mL (8-252); Glucose 97 mg/dL (74-106); HDL Cholesterol 82 mg/dL (40-60); Potassium 4.4 mmol/L (3.5-5.1); Sodium 144 mmol/L (136-145); TSH (W/Ref FT4) 2.25 uIU/mL (0.36-3.74); Triglyceride 50 mg/dL (<150)
== END 2022-11-20 02:07 | disposition home or self-care (01) ==
LOC: LBO 02:06
PROVIDERS: PCP Nurse Practitioner Adult Health; Visit Provider Nurse Practitioner Adult Health
DX: I10 Essential (primary) hypertension (principal); E78.5 Hyperlipidemia, unspecified; D50.9 Iron deficiency anemia, unspecified; E03.9 Hypothyroidism, unspecified; E66.8 Other obesity
CPT/HCPCS: 36415; 80048; 80061; 85027; 82728; 84443

== ENCOUNTER 2023-05-10 12:21 | Emergency (ER) | payer MEDICAID, SELFPAY ==
[2023-05-10 12:30] VITALS: BP 136/83; PULSE 84; RESP 20; TEMP 37; O2SAT 99
--- NOTE | 2023-05-10 12:30 | DI.US_ITS ---
Exam(s) US LOWER EXTREMITY VENOUS LT EXAM: US LOWER EXTREMITY VENOUS LT CLINICAL HISTORY: Left calf pain TECHNIQUE: Left lower extremity venous ultrasound performed using grayscale, color-flow, and spectra l Doppler analysis. COMPARISON: No exams were available for comparison FINDINGS: The left common femoral, femoral and popliteal veins demonstrate normal compressibility, augmentation , and color Doppler. The posterior tibial and peroneal veins are patent. The saphenofemoral junction is unremarkable. There is no evidence of a Ruiz cyst. The soft tissues are unremarkable. IMPRESSION: 1. No evidence of a left lower extremity DVT. 2. Findings were discussed with the emergency department at 2:05 p.m. on 05/10/2023. DATA REPOSITORY:
--- NOTE | 2023-05-10 12:42 | ED.GENADUL_ITS ---
Discharge Plan Disposition Patient Disposition: Home Discharge Details Clinical Impression: Lower extremity pain, left Primary Care Provider: Елена Robb ED Provider: Benjie Bertrand Home Meds and New Rx's Prescriptions: New cyclobenzaprine 5 mg tablet 5 mg PO TID PRNQty: 7 0RF Continued ferrous gluconate 324 mg (37.5 mg iron) tablet 324 mg PO .every other day Qty: 45 3RF Rx Instructions: Restless legs and low iron levothyroxine 100 mcg capsule 100 mcg PO DAILY Qty: 90 3RF lisinopril 10 mg tablet 10 mg PO DAILY Qty: 90 3RF Rx Instructions: Dose decrease 08/12/2020 for BP venlafaxine 75 mg capsule,extended release 24hr 75 mg PO DAILY Qty: 90 3RF Rx Instructions: To take with 150mg cap for total daily dose 225mg. venlafaxine 150 mg capsule,extended release 24hr 150 mg PO DAILY Qty: 90 3RF Rx Instructions: Take with 75mg cap for total daily dose 225mg. hydroxyzine HCl 10 mg tablet See Rx Instructions .ROUTE .COMPLEX Qty: 40 2RF Dose Instruction: TAKE 1 TO 2 TABLETS BY MOUTH AT BEDTIME NEEDED FOR SLEEP DIFFICULTY Rx Instructions: TAKE 1 TO 2 TABLETS BY MOUTH AT BEDTIME NEEDED FOR SLEEP DIFFICULTY acetaminophen 500 mg tablet 500 mg PO Q6H PRN (Reason: pain) Qty: 60 2RF Discharge Instructions Instructions: Leg Pain (ED) Additional Instructions: Please read all of the information that accompanies these instructions. You were seen in the emergency department for your leg pain. Your ultrasound showed no sign of a blood clot in your leg. Please schedule an appointment with your primary care provider later this week. Please return to the emergency department if develop any numbness or tingling in your left foot if you develop any weakness in your left foot or if you take any falls. For your pain please take medications as follows: 1. Take acetaminophen (Tylenol), 1,000 mg (two 500 mg tabs) every 6 hours 2. Take ibuprofen (Advil), 400 mg every 6 hours. Stand Alone Forms: Physical Therapy Referral, Work Release Discharge Data Discharge Date/Time-TO BE ENTERED AT DEPARTURE: 05/10/23 13:43 Medical Decision Making This is an overall very well-appearing normothermic and not tachycardic 62-year-old female with obesity and atraumatic left lower extremity pain. No pain or proportion to suggest necrotizing soft tissue infection. Left foot warm and well-perfused and patient has no history of peripheral vascular disease nor diabetes nor tobacco use so my suspicion for critical limb ischemia is exceedingly low so I do not feel the patient requires a CT angiogram. No numbness nor tingling in left lower extremity and no focal neurological weakness so my suspicion for CVA is exceedingly low so I do not feel that the patient is a tPA candidate nor do I feel that she requires MRI. Given lack of trauma and lack of tenderness on exam I did not feel that the patient required plain films as my suspicion for fracture is exceedingly low. Patient has no history of malignancy so my suspicion for pathological fracture was exceedingly low. Given her calf pain I obtained a left lower extremity duplex study which was negative for DVT. No recent antibiotic use and negative Armstrong's test so I am not concerned about Achilles tendon rupture. I offered the patient crutches but she declined. I asked health ammunition storekeeper Maria A to have patient seen by her primary care provider within the next week. Patient requested a work note which I provided her. We will proceed with empiric trial of expectant outpatient management. HPI General Date/Time Provider Initiated Documentation: 05/10/23 12:41 . HPI Narrative: This is a 70-year-old obese female arriving via private vehicle in the setting of sudden left calf pain which began 2 days ago. She does have a history of osteoarthritis. She has never had similar leg pain in the past. She is not a diabetic nor smoker. She denies any significant trauma to her left lower extremity. 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 She reports that she has been sitting more than usual recently. She has not recently been nauseous nor vomiting. No numbness or tingling in her left foot. No rashes to left lower extremity. Related Data Home Medications Medication Instructions Recorded Confirmed acetaminophen 500 mg tablet 500 mg PO Q6H PRN pain #60 tabs 06/24/21 05/10/23 ferrous gluconate 324 mg (37.5 mg 324 mg PO .every other day #45 tabs 06/22/22 05/10/23 iron) tablet levothyroxine 100 mcg capsule 100 mcg PO DAILY thyroid #90 caps 06/22/22 05/10/23 lisinopril 10 mg tablet 10 mg PO DAILY #90 tabs 06/22/22 05/10/23 venlafaxine 150 mg 150 mg PO DAILY mood #90 caps 06/22/22 05/10/23 capsule,extended release 24 hr venlafaxine 75 mg capsule,extended 75 mg PO DAILY mood #90 caps 06/22/22 05/10/23 release 24 hr hydroxyzine HCl 10 mg tablet See Rx Instructions .Route 01/28/23 05/10/23 .COMPLEX #40 tabs cyclobenzaprine 5 mg tablet 5 mg PO TID PRN #7 tabs 05/10/23 Previous Rx's Medication Instructions Recorded acetaminophen 500 mg tablet 500 mg PO Q6H PRN pain #60 tabs 06/24/21 ferrous gluconate 324 mg (37.5 mg 324 mg PO .every other day #45 tabs 06/22/22 iron) tablet levothyroxine 100 mcg capsule 100 mcg PO DAILY thyroid #90 caps 06/22/22 lisinopril 10 mg tablet 10 mg PO DAILY #90 tabs 06/22/22 venlafaxine 150 mg 150 mg PO DAILY mood #90 caps 06/22/22 capsule,extended release 24 hr venlafaxine 75 mg capsule,extended 75 mg PO DAILY mood #90 caps 06/22/22 release 24 hr hydroxyzine HCl 10 mg tablet See Rx Instructions .Route 01/28/23 .COMPLEX #40 tabs cyclobenzaprine 5 mg tablet 5 mg PO TID PRN #7 tabs 05/10/23 Allergies Allergy/AdvReac Type Severity Reaction Status Date / Time No Known Allergies Allergy Verified 05/10/23 12:35 General Stated Complaint: [facility] ANITA: 3 PFSH All Active Problems (Updated 05/10/23 @ 13:27 by Benjie Bertrand MD) Lower extremity pain, left (Acute) Obesity (Chronic) Hyperlipidemia (Chronic) 2019 labs-->ASCVD 10-yr risk 1.8%, not a statin candidate Insomnia (Chronic) Difficulty falling asleep (thought rumination); Caffeine (avoid after noon) + MelatoninPRN; Hydroxyzine Primary osteoarthritis (Chronic) Knees, wrists, wears splints Iron deficiency anemia (Chronic) Eats whole foods diet Colonoscopy normal 2017 (reported) Depression (Chronic) Long-term Effexor Hypertension (Chronic) Hypothyroid (Chronic) Anxiety (Chronic) Long-term Effexor Medical History Arthritis of carpometacarpal (CMC) joint of right thumb Elevated BUN Hallux varus (acquired), right foot Per Podiatry note from 06/26/21 Orthodic 03/12/22 Low iron QOD ferrous gluconate resolved Low serum potassium Discontinuation chlorthalidone Osteoarthritis of right knee s/p TKA 2020 Other congenital valgus deformity of feet Per Podiatry note from 06/26/21 Pain in right foot Per Podiatry note from 06/26/21 Vitamin B deficiency Surgical History Arthritis of carpometacarpal (CMC) joint of left thumb S/P trapezial arthroplasty: 12/04/2019 H/O tubal ligation 1996 [facility] History of bladder suspension procedure History of colonoscopy History of tonsillectomy History of total right knee replacement (09/11/20) Trigger finger of right thumb (~06/24/21) S/P Release: 06/24/2021 Family History Maternal Aunt Breast cancer Mother Osteoarthritis Hypertension Maternal Grandfather Myocardial infarction Coronary artery disease Maternal Cousin Coronary artery disease Father , 07/2021 FH: prostate cancer Social History Smoking/Tobacco Use Status: Never Smoking risk assessment performed?: Yes Alcohol Intake: never Drug use: Never Substance use type: does not use Counseling given: No Adopted: No Caregiver/Support person: No Foster care: No Household members: friend(s) Housing: apartment Number of Children: 3 number of grandchildren: 8 Communication Needs: Corrective Lenses Education Level: vocational Do you need help understanding health information?: Never 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 Pets and animals: Yes Pets and animals: cat(s) Sexually active: No Do you think of yourself as: straight/heterosexual Current gender identity: female What is your relationship status?: How often do you talk on the phone with friends or family?: three or more times per week How often do you get together with friends or relatives?: once per week How often do you attend judaism or denominational services?: decline to answer Do you belong to any clubs or organized social groups?: no Panel score (0-1 are the most socially isolated patients): 1 What type of physical activity do you participate in: none Giselle/Latter Day: Yazdanism Special giselle needs: No Seatbelt use: always Helmet use: Yes Drive intox or ride w/intox tow motor driver: No Working smoke detector in home: Yes Fire extinguisher in home: Yes Carbon monox detector in home: Yes Do you feel safe at home: Yes Do you feel safe in your relationship?: Yes History History 3 Para 3 Hx # Term Pregnancies Multiple births Hx # Pregnancies Ectopic pregnancies AB induced Hx Number of Living Children AB spontaneous Exam Narrative Exam Narrative: General: Well-appearing in no acute distress speaking in complete sentences. Head: Normocephalic, atraumatic. Eye: Extraocular eye movements intact. No conjunctival injection. No scleral icterus. Ear, nose, mouth, throat: Grossly normal inspection. Normal voice, handling secretions normally. Neck: Trachea midline. Cardiovascular: Well-perfused distal extremities. Respiratory: Nonlabored respiration. Gastrointestinal: Nondistended abdomen. Musculoskeletal: Left lower extremity: No signs of trauma. No tenderness throughout thigh knee calf and foot. Left foot warm well perfused with 5 out of 5 strength in dorsi and plantarflexion. 2+ left PT and DP pulses. Patient is able to flex at the knee fully. She is able to straight leg raise. She has 5 out of 5 strength on flexion and extension at the left knee and hip. Patient has pain to her left leg when bearing weight. No tenderness to hips. Cap refill less than 2 seconds in left toes which are warm and well-perfused. Sensation intact in the dorsal webspace between the first and second toes on the left. Skin: Normal for age and race, grossly normal temperature and turgor. No acute rash. Neurologic: Alert and appropriate, no apparent acute deficits. Psychiatric: Mood and manner are appropriate. Grooming and personal hygiene are appropriate. Course Vital Signs Vital signs: Vital Signs Temperature 37 C 05/10/23 12:30 Pulse 84 05/10/23 12:30 Respiratory Rate 20 05/10/23 12:30 Blood Pressure 136/83 05/10/23 12:30 Pulse Oximetry 99 05/10/23 12:30 Temperature 37 C 05/10/23 12:30 Temperature Source Oral 05/10/23 12:30 Pulse 84 05/10/23 12:30 Respiratory Rate 20 05/10/23 12:30 Blood Pressure 136/83 05/10/23 12:30 Blood Pressure Position Sitting 05/10/23 12:30 Pulse Oximetry 99 05/10/23 12:30 Oxygen Delivery Method Room Air 05/10/23 12:30 Oxygen Flow Rate 0 05/10/23 12:30 Pain Level 10 05/10/23 12:30
[2023-05-10] MEDS: Ibuprofen 600 MG TAB PO (13:35)
[2023-05-10] MEDS: Acetaminophen 500 MG TAB 1000 MG PO (13:35)
[2023-05-10 13:37] VITALS: BP 136/83; PULSE 84; RESP 20; TEMP 37; O2SAT 99
--- NOTE | 2023-05-10 16:08 | NUR.NOTE ---
Pt referral to pcp for fallow up within a week with roscoe pendleton for left leg painNursing Note:
== END 2023-05-10 13:43 | disposition home or self-care (01) ==
PROVIDERS: Emergency Provider Emergency Medicine; PCP Nurse Practitioner Adult Health
DX: M79.662 Pain in left lower leg (principal)
CPT/HCPCS: 99284; 93971

== ENCOUNTER → 2023-05-18 01:26 | Outpatient (CLI) | payer MEDICAID, SELFPAY ==
--- NOTE | 2023-05-18 07:45 | DI.RAD_ITS ---
Exam(s) XR KNEE LT 4V AP,LAT,KASIE,PAT EXAM: XR KNEE LT 4V AP,LAT,KASIE,PAT CLINICAL HISTORY: Acute knee swelling LT, M25.462 EFFUSION. TECHNIQUE: 2D digital imaging was performed of the left knee. Four images were obtained. Merchant, AP, lateral and PA tunnel views were obtained. COMPARISON: CR XR STANDING ALIGNMENT from 09/26/2020 FINDINGS: BONES: No acute fracture is present. No bony destructive lesion is seen. JOINTS: There are mild degenerative changes seen in the left knee characterized by joint space narrow ing and periarticular spurring. The findings are most marked in the patellofemoral joint. No joint effusion is seen. No loose body. SOFT TISSUE: Normal. IMPRESSION: Degenerative changes of the left knee. DATA REPOSITORY: RADIATION DOSE DELIVERED:
== END ==
PROVIDERS: PCP Nurse Practitioner Adult Health; Visit Provider Family Medicine
DX: M25.462 Effusion, left knee (principal); M17.12 Unilateral primary osteoarthritis, left knee
CPT/HCPCS: 73564

== ENCOUNTER → 2023-06-15 01:17 | Outpatient (CLI) | payer MEDICAID, SELFPAY ==
--- NOTE | 2023-06-15 07:30 | DI.MAMMO_ITS ---
Exam(s) MAMMO SCREENING EXAM: MAMMO SCREENING CLINICAL HISTORY: SCREENING, Z12.39 TECHNIQUE: Bilateral full field digital CC and MLO mammographic images were obtained with 3D tomosyn thesis and utilizing computer aided detection (CAD). COMPARISON: Available for comparison. FINDINGS: Masses/Architectural Distortion: None seen. Microcalcifications: No suspicious pleomorphic-type are seen. Skin Thickening/Nipple Retraction: None. IMPRESSION: 1. No significant interval change with no specific features of malignancy noted. 2. Unless there is more urgent need, screening mammography is recommended, as per [employer] guidelines. BI-RADS Category 1 - Negative Breast Density - Category B - Scattered areas of fibroglandular density Breast density category C or D implies that the patient has dense breast tissue. Dense breast tissue is very common and is not abnormal but dense breast tissue can make it harder to find cancer on a ma mmogram. Also, dense breast tissue may increase their breast cancer risk. This information about the result of the mammogram report was provided to the patient to raise their awareness. Use this report when you speak with the patient about their risks for breast cancer, which includes their family hist ory. At that time, you may recommend for more screening tests (Ultrasound or MRI) as they might be us eful based on their risk. A negative radiographic report should not delay biopsy if a dominant or clinically suspicious mass is present. Up to ten percent of cancers are not identified on mammography. A negative report may reinforce clinical impression. Adenosis and dense breasts may obscure an underlying neoplasm. False positive reports average 6 to 10%. Patient will receive a letter notifying them of these results.
== END ==
PROVIDERS: PCP Nurse Practitioner Adult Health; Visit Provider Nurse Practitioner Adult Health
DX: Z12.39 Encounter for other screening for malignant neoplasm of breast (principal)
CPT/HCPCS: 77063; 77067

== ENCOUNTER 2023-11-23 04:32 | Outpatient (CLI) | payer OTHER, SELFPAY ==
[2023-11-23 10:20] LABS: Anion Gap 10.6 mmol/L (3-11); BUN 21 mg/dL (7-18); CO2 26.4 mmol/L (21.0-32.0); CREATININE 0.9 mg/dL (0.55-1.02); Calcium 9.6 mg/dL (8.5-10.1); Calculated LDL 137 mg/dL (<100); Chloride 107 mmol/L (98-107); Cholesterol 225 mg/dL (<200); Estimated GFR 72.73 (mL/min/1.73m2); Glucose 98 mg/dL (74-106); HDL Cholesterol 72 mg/dL (40-60); Potassium 4.1 mmol/L (3.5-5.1); Sodium 144 mmol/L (136-145); TSH (W/Ref FT4) 2.43 uIU/mL (0.36-3.74); Triglyceride 81 mg/dL (<150)
== END 2023-11-23 04:33 | disposition home or self-care (01) ==
LOC: LBO 04:33
PROVIDERS: Absent Provider Nurse Practitioner Adult Health; PCP Nurse Practitioner Adult Health; Visit Provider Nurse Practitioner Adult Health
DX: E78.5 Hyperlipidemia, unspecified (principal); I10 Essential (primary) hypertension; E03.9 Hypothyroidism, unspecified
CPT/HCPCS: 36415; 80048; 80061; 84443

== ENCOUNTER 2024-10-11 00:43 | Outpatient (CLI) | payer OTHER, SELFPAY ==
--- NOTE | 2024-10-11 08:18 | DI.MAMMO_ITS ---
Exam(s) MAMMO SCREENING EXAM: MAMMO SCREENING CLINICAL HISTORY: screening,Z12.39. TECHNIQUE: Bilateral full field digital CC and MLO mammographic images were obtained with 3D tomosyn thesis and utilizing computer aided detection (CAD). COMPARISON: Prior mammograms were reviewed. FINDINGS: There has been no significant change in the appearance and distribution of the fibroglandular tissue. No CAD designations. There are no new spiculated masses nor malignant appearing microcalcification groups. There is no significant architectural distortion nor skin thickening-retraction. IMPRESSION: No radiographic evidence of malignancy. BI-RADS Category 1 - Negative Breast Density - Category A - Almost entirely fatty Breast density Category C or D implies that the patient has dense breast tissue. Dense breast tissue can make it harder to find cancer on a mammogram. Dense breast tissue is also associated with an incr eased risk of breast cancer. This information about the result of the mammogram report was provided to the patient to raise their awareness. Use this report when you speak with the patient about their risks for breast cancer, which includes their family history. At that time, you may recommend additional screening tests (Ultrasoun d or MRI) as these tests may add significant information. A negative radiographic report should not delay biopsy if a dominant or clinically suspicious mass is present. Up to ten percent of cancers are not identified on mammography. A negative report may reinforce clinical impression. Adenosis and dense breasts may obscure an underlying neoplasm. False positive reports average 6 to 10%. Patient will receive a letter notifying them of these results.
== END 2024-10-11 01:03 ==
LOC: DI 00:44
PROVIDERS: PCP Nurse Practitioner Adult Health; Visit Provider Nurse Practitioner Adult Health
DX: Z12.31 Encounter for screening mammogram for malignant neoplasm of breast (principal); R92.313 Mammographic fatty tissue density, bilateral breasts
CPT/HCPCS: 77063; 77067

== ENCOUNTER 2025-02-27 08:56 | Outpatient (CLI) | payer OTHER, SELFPAY ==
[2025-02-27 07:52] LABS: HCT 36.4 % (36.0-46.0); HGB 11.7 g/dL (11.2-15.7); MCHC 32.1 % (32.0-36.0); MCV 90 fL (80-95); MPV 11.2 fL (8.0-11.0); Platelet Count 246 10^3/uL (130-400); RBC 4.03 10^6/uL (3.93-5.22); RDW 13.4 % (11.7-14.6); RDW-SD 44.5 fL; WBC 7.31 10^3/uL (4.4-10.8)
[2025-02-27 07:54] LABS: Anion Gap 10.4 mmol/L (3-11); BUN 17 mg/dL (7-18); CO2 24.6 mmol/L (21.0-32.0); Calcium 9.3 mg/dL (8.5-10.1); Chloride 106 mmol/L (98-107); Glucose 128 mg/dL (74-106); Potassium 3.8 mmol/L (3.5-5.1); Sodium 141 mmol/L (136-145); TSH (W/Ref FT4) 8.88 uIU/mL (0.36-3.74)
[2025-02-27 08:13] LABS: FREE T4 0.98 ng/dL (0.76-1.46)
== END 2025-02-27 08:57 | disposition home or self-care (01) ==
LOC: LBO 08:56
PROVIDERS: PCP Nurse Practitioner Adult Health; Visit Provider Nurse Practitioner Adult Health
DX: I10 Essential (primary) hypertension (principal); E78.2 Mixed hyperlipidemia; E03.9 Hypothyroidism, unspecified
CPT/HCPCS: 36415; 80048; 85027; 84439; 84443

== ENCOUNTER 2025-09-07 00:56 | Outpatient (CLI) | payer OTHER, SELFPAY ==
[2025-09-07 17:05] LABS: HCT 34.3 % (36.0-46.0); HGB 11.0 g/dL (11.2-15.7); MCH 29.3 pg (27.0-33.0); MCHC 32.1 % (32.0-36.0); MCV 92 fL (80-95); MPV 11.4 fL (8.0-11.0); Platelet Count 235 10^3/uL (130-400); RBC 3.75 10^6/uL (3.93-5.22); RDW 13.4 % (11.7-14.6); RDW-SD 45.3 fL; WBC 8.32 10^3/uL (4.4-10.8)
[2025-09-07 17:12] LABS: Hemoglobin A1C 5.4 % (<5.7)
[2025-09-07 17:49] LABS: ALT 22 U/L (10-49); AST 27 U/L (<34); Albumin 4.5 g/dL (3.2-5.0); Alkaline Phosphatase 131 U/L (46-116); Anion Gap 8.4 mmol/L (3-11); BUN 20 mg/dL (9-23); Bilirubin, Total 0.3 mg/dL (0.2-1.2); CO2 25.6 mmol/L (20.0-31.0); Calcium 9.3 mg/dL (8.3-10.6); Chloride 108 mmol/L (98-107); Glucose 88 mg/dL (74-106); Potassium 4.4 mmol/L (3.5-5.1); Sodium 142 mmol/L (136-145); Total Protein 7.5 g/dL (5.7-8.2)
[2025-09-07 17:52] LABS: TSH (W/Ref FT4) 19.52 uIU/mL (0.55-4.78)
== END 2025-09-07 00:57 | disposition home or self-care (01) ==
LOC: LBO 00:56
PROVIDERS: Nurse Practitioner Family; PCP Nurse Practitioner Adult Health; Visit Provider Nurse Practitioner Adult Health
DX: E03.9 Hypothyroidism, unspecified (principal); R42 Dizziness and giddiness; R73.01 Impaired fasting glucose
CPT/HCPCS: 36415; 80053; 85027; 83036; 84439; 84443